=== PATIENT | female | born 1995 | race Caucasian/White ===

== ENCOUNTER 2017-04-27 09:44 | Emergency (ER) | payer OTHER ==
[2017-04-27] MEDS ORDERED: DIPHENHYDRAMINE 50 MG/ML VIAL ONE (10:22)
--- NOTE | 2017-04-27 10:36 | ER PHYSICIAN DOCUMENTATION ---
Physician Documentation [facility] Name:Bridgett Jones Age:21 yrs Sex:Female :1995 Arrival Date:04/27/2017 Time:09:44 BedTrauma-A Private MD: David Arreaga Disposition: 04/27/17 10:26 Discharged to Home/Self Care. Impression: Bronchitis Acute, Allergic Reaction. - Condition is Good. - Discharge Instructions: ALLERGIC REACTION, Other (General), BRONCHITIS, Abx Tx (Adult). - Prescriptions for Pepcid 20 mg Oral Tablet - take 1 tablet by ORAL route every 12 hours for 5 days; 10 tablet. Zithromax Z- Dexter 250 mg Oral Tablet - take 1 tablet by ORAL route as directed for 5 days Day 1 - take two (2) tablets one time. Day 2, 3, 4 , 5 take one (1) tablet once daily.; 6 tablet. - Medical Reconciliation form form. - Follow up: Private Physician; When: 7 - 10 days; Reason: Recheck today's complaints, Continuance of care. - Problem is new. - Symptoms have improved. - Notes: Take Benadryl 25mg by mouth every 6 hours for 2 - 3 days. Pepcid 20mg by mouth every 12 hours for 5 days. You are on Accutane...you MUST use SPF-50 Sunscreen every day Z-Pack for 5 days as directed Tylenol for fever Push 2 quarts of water every day. HPI: 04/27 09:50 This 21 yrs old Female presents to ER via Private Vehicle with complaints of cd Rash. 09:50 The patient presents with a rash that is though to be caused by an unknown cause, a cd recent illness, Patient has a URI with a cough, rhinorrhea and now it is going down into her chest. The rash is located on the right arm and left arm. The rash can be described as erythematous, urticarial. Onset: The symptom(s)/episode began/occurred this morning. Associated signs and symptoms: Pertinent positives: itching, Pertinent negatives: burning sensation, fever, swelling of lips, swelling of throat, swelling of tongue, wheezing. Historical: - Allergies: No known drug Allergies; - Home Meds: 1. acutane 2. oral contraceptives - PMHx: acne; - PSHx: foot surgeries; nose surgery; - Tetanus: < 10 years. - Ebola Screening: : Patient negative for fever greater than or equal to 101.5 degrees Fahrenheit, and additional compatible Ebola Virus Disease symptoms. Patient denies exposure to infectious person. Patient denies travel to an Ebola-affected area in the 21 days before illness onset. . - Immunization history: Flu Vaccine < 1 year. - Social history: Smoking status: Patient states was never smoker of tobacco. ROS: 10:00 Constitutional: Negative for chills, fever, poor PO intake. cd 10:00 ENT: Positive for rhinorrhea, sinus congestion, Negative for sore throat, difficulty swallowing, difficulty handling secretions, hoarseness. 10:00 Respiratory: Negative for shortness of breath, wheezing. 10:00 Skin: Positive for erythema, rash, of the left arm and right arm. 10:00 All other systems are negative. Exam: 10:00 Head/Face: Normocephalic, atraumatic. cd 10:00 Eyes: Pupils equal round and reactive to light, extra-ocular motions intact. Lids and cd lashes normal. Conjunctiva and sclera are non-icteric and not injected. Cornea within normal limits. Periorbital areas with no swelling, redness, or edema. 10:00 Constitutional: The patient appears alert, awake, non-diaphoretic, non-toxic, well developed, well nourished. 10:00 ENT: TM's: are normal, Mouth: is normal, Posterior pharynx: is normal, Voice: is normal. 10:00 Neck: Exam negative for acute changes. 10:00 Respiratory: the patient does not display signs of respiratory distress, Respirations: normal, Breath sounds: are normal. 10:00 Skin: Appearance: normal except for affected area, rash a mild rash is noted, urticaria. Vital Signs: 09:49 BP 133 / 48; Pulse 94; Resp 16; Temp 98.1(O); Pulse Ox 91% on R/A; Weight 65.77 kg; lp Height 5 ft. 8 in. (172.72 cm); Pain 0/10; 10:27 BP 117 / 65; Pulse 73; Resp 14; Pulse Ox 98% on R/A; tg 09:49 Body Mass Index 22.05 (65.77 kg, 172.72 cm) lp MDM: 10:25 Data reviewed: vital signs, nurses notes, old medical records, and as a result, I will cd discharge patient. Data interpreted: Pulse oximetry: on room air is 98 %. Interpretation: normal. Counseling: I had a detailed discussion with the patient and/or guardian regarding: the historical points, exam findings, and any diagnostic results supporting the discharge/admit diagnosis, the need for outpatient follow up, for a recheck, with the patient's primary care provider, to return to the emergency department if symptoms worsen or persist or if there are any questions or concerns that arise at home. 10:26 Patient medically screened. cd Dispensed Medications: 10:13 Drug: Benadryl 50 mg; Route: IM; Site: right gluteus; tg 10:27 Follow up: Response: No adverse reaction tg Signatures: Caio Martin RN RN tg Stephanie Mcclain RN RN David Davis MD MD cd
--- NOTE | 2017-04-27 10:36 | ER NURSING DOCUMENTATION ---
Nurse's Notes [facility] Name:Bridgett Jones Age:21 yrs Sex:Female :1995 Arrival Date:04/27/2017 Time:09:44 BedTrauma-A Private MD: Diagnosis:Bronchitis Acute;Allergic Reaction Presentation: 04/27 09:46 Acuity: SOPHIE 4 tg 09:58 Presenting complaint: Patient states: rash on arms and legs with nasal congestion. lp Transition of care: Home. Onset: The symptoms/episode began/occurred gradually. Anaphylaxis evaluation, no signs or symptoms of anaphylaxis were noted. Risk considerations: no risks identifed. 09:58 Method Of Arrival: Private Vehicle lp Triage Assessment: 09:59 General: Appears in no apparent distress, Behavior is appropriate for age. Pain: Denies lp pain. Historical: - Allergies: No known drug Allergies; - Home Meds: 1. acutane 2. oral contraceptives - PMHx: acne; - PSHx: foot surgeries; nose surgery; - Tetanus: < 10 years. - Ebola Screening: : Patient negative for fever greater than or equal to 101.5 degrees Fahrenheit, and additional compatible Ebola Virus Disease symptoms. Patient denies exposure to infectious person. Patient denies travel to an Ebola-affected area in the 21 days before illness onset. . - Immunization history: Flu Vaccine < 1 year. - Social history: Smoking status: Patient states was never smoker of tobacco. Screenin:00 Infectious Disease Risk None. Abuse screen: Denies threats or abuse. Denies injuries lp from another. Nutritional screening: No deficits noted. Assessment: 10:00 Respiratory: Airway is patent Respiratory effort is even, unlabored, Breath sounds are lp clear bilaterally. Vital Signs: 09:49 BP 133 / 48; Pulse 94; Resp 16; Temp 98.1(O); Pulse Ox 91% on R/A; Weight 65.77 kg; lp Height 5 ft. 8 in. (172.72 cm); Pain 0/10; 10:27 BP 117 / 65; Pulse 73; Resp 14; Pulse Ox 98% on R/A; tg 09:49 Body Mass Index 22.05 (65.77 kg, 172.72 cm) lp ED Course: 09:45 Patient arrived in ED. arc 09:46 Triage completed. tg 09:51 Stephanie Mcclain, RN is Primary Nurse. lp 10:[address] Mancera notified. lp 10:00 Valuables Remains with patient. lp 10: David Mancera MD is Attending Physician. cd Administered Medications: 10:13 Drug: Benadryl 50 mg; Route: IM; Site: right gluteus; tg 10: Follow up: Response: No adverse reaction tg Outcome: : Discharge ordered by MD. cd 10: Discharged to home ambulatory, with friend. tg 10: Condition: stable 10: Discharge Assessment: Patient awake and alert. 10:27 Instructed on discharge instructions, follow up and referral plans. medication usage, Prescriptions given X 2. 10:36 Patient left the ED. tg 04/28 16:39 Discharge F/U Call: Unable to reach: left voicemail: lc Signatures: Caio Martin RN RN Adele Barnes RN RN Stephanie Maldonado RN RN David Davis MD MD cd Zoila Toribio, Reg Reg arc
== END 2017-04-27 10:36 | disposition home or self-care (01) ==
LOC: ER 09:44
DX: J20.9 Acute bronchitis, unspecified (principal); L50.0 Allergic urticaria; Z79.899 Other long term (current) drug therapy
CPT/HCPCS: 96372; 99283; J1200